=== PATIENT | female | born 1980 | race Two or more races ===

== ENCOUNTER → 2016-10-22 | Outpatient (CLI) | payer OTHER ==
[~2016-10-22] MED LIST: AUGMENTIN PO; ESTRADIOL1 EAC2 EXT; HUMIRA PEN40 MG/0.8 SUBQ; HYDROCODON-ACE1 EAC7 PO; NO MEDICATIONS
[2016-10-22 10:09] LABS: HEMATOCRIT 48.6 % (35.0-45.0); HEMOGLOBIN 16.3 gm/dL (12.0-16.0); MEAN CELL VOLUME 92.3 FL (83-96); MEAN CORPUSCULAR HGB CONC 33.6 g/dL (30-36); MEAN PLATELET VOLUME 9.2 FL (6.5-11.5); RED BLOOD COUNT 5.27 X10e (3.90-5.30); RED CELL DISTRIBUTION WIDTH 15.1 % (11.0-15.5); WHITE BLOOD COUNT 10.7 X10e3 (4.0-10.5)
== END | disposition home or self-care (01) ==
LOC: CAMB 08:42
PROVIDERS: Specialist
DX: Z01.812 Encounter for preprocedural laboratory examination (principal)
CPT/HCPCS: 85027

== ENCOUNTER → 2016-10-29 | Day surgery (SDC) | payer OTHER ==
--- NOTE | ~2016-10-29 | OR ---
Unit #: [id number] #: [id number] Patient: CHIP ECHEVERRIA [id number] [address] [place], [place] [address] [id number] O MR#: [id number] NAME: CHIP ECHEVERRIA ROOM: Date of Procedure: 10/29/2016 Admission Date: 10/29/2016 Surgeon: Alexis Barnard M.D. : 1980 Attending Physician: Alexis Barnard M.D. Primary Care Physician: Misti Arnold M.D. PROCEDURE OPERATIVE NOTE PREOPERATIVE DIAGNOSIS Chronic axillary hidradenitis. POSTOPERATIVE DIAGNOSIS Chronic axillary hidradenitis. PROCEDURE PERFORMED Excision of chronic stage 4 axillary hidradenitis measuring 12 x 4 cm with excision down into the superficial axillary fascia. ANESTHESIA General endotracheal anesthesia. ESTIMATED BLOOD LOSS 25 mL. INDICATION Ms. Echeverria is a 35-year-old female who has had chronic bilateral axillary hidradenitis requiring multiple episodes of antibiotics, incision and drainage and even episodes of spontaneous drainage. She has developed chronic palpable nodules in the right axillary with several chronic sinuses. Due to failure to improve with nonoperative management, the patient was sent for resection. DESCRIPTION OF PROCEDURE The patient was seen in preoperative hold. I palpated through the axilla and marked the extent of the disease with the aid of the patient. Close to where the incision was going to be, there was a superficial mole that the patient asked to be removed. After this area had been marked, she was transported to the operating room where, after induction of general endotracheal anesthesia, she received IV antibiotics and she was appropriately positioned. A wedge excision to include all of the superficially effected tissue was performed. We then created circumferential skin flaps and dissected down through good clean tissue planes down to the clavipectoral fascia. I then removed all of the effected tissue exterior to the clavipectoral fascia. No other palpable masses or nodes were noted. The specimen was sent to the laboratory. On the skin, the superficial mole was excised at the level of the skin and sent to the lab. I then irrigated copiously, ensured hemostasis. I palpated widely and no other palpable nodules were felt. The soft tissue was closed in layers using 2-0 Vicryl interrupted suture and 30 mL of 0.5% Marcaine with epinephrine was infiltrated in the fascia and soft tissue. Unit #: [id number] #: [id number] Patient: CHIP ECHEVERRIA Skin was closed with 2-0 nylon vertical mattress alternating with simple sutures. Once the wound was closed, Telfa and Tegaderm placed as dressing. Sponge and needle counts correct x3. The patient tolerated the procedure well and was transported to recovery in stable condition. Findings and postoperative instructions will be discussed with the family once they return from lunch. Dictated by... Carlos Sanchez/raven TD: 10/29/2016 14:00 JOB #: [id number] PROCEDURE OPERATIVE NOTE Page 1 of 1 X Alexis Barnard MD X PROCEDURE OPERATIVE NOTE
[2016-10-29 11:36] LABS: ALBUMIN SERUM 3.4 g/dL (3.5-5.0); BILIRUBIN,TOTAL 0.5 mg/dL (0.2-2.0); BUN/CREATININE RATIO 21.66; CREATININE SERUM 0.6 mg/dL (0.6-1.4); GLOM FILT RATE Estimated 136.9 mL/min (>60); POTASSIUM 3.7 mmol/L (3.5-5.1); PROTEIN TOTAL SERUM 7.4 g/dL (6.0-8.3)
== END | disposition home or self-care (01) ==
LOC: CSUR 10:16
PROVIDERS: Specialist
DX: L73.2 Hidradenitis suppurativa (principal); R03.0 Elevated blood-pressure reading, without diagnosis of hypertension; E66.9 Obesity, unspecified; D64.9 Anemia, unspecified; M19.90 Unspecified osteoarthritis, unspecified site; G43.909 Migraine, unspecified, not intractable, without status migrainosus; F41.9 Anxiety disorder, unspecified; F17.210 Nicotine dependence, cigarettes, uncomplicated; Z68.37 Body mass index [BMI] 37.0-37.9, adult; Z88.1 Allergy status to other antibiotic agents; Z88.5 Allergy status to narcotic agent; Z88.6 Allergy status to analgesic agent; Z88.8 Allergy status to other drugs, medicaments and biological substances; Z91.040 Latex allergy status; Z79.899 Other long term (current) drug therapy; Z90.49 Acquired absence of other specified parts of digestive tract; Z90.710 Acquired absence of both cervix and uterus; Z98.51 Tubal ligation status; Z98.890 Other specified postprocedural states
CPT/HCPCS: 80053; 88304; J1170; J2250; J2405; J3010; J3370

== ENCOUNTER 2016-11-14 02:00 | Observation (INO) | payer OTHER ==
--- NOTE | ~2016-11-14 | CO ---
Unit #: [id number] #: [id number] Patient: CHIP ECHEVERRIA [id number] [address] [address] [id number] I MR#: [id number] NAME: CHIP ECHEVERRIA ROOM: 229 Age: 36 Sex: F Admission Date: 11/14/2016 : 1980 Attending Physician: Chilo Garvin M.D. Primary Care Physician: Misti Arnold M.D. Consultation Date: 11/14/2016 CONSULTATION REPORT HISTORY OF PRESENT ILLNESS Ms. Echeverria is a 36-year-old female with a long history of multiple sites of hidradenitis. She recently has had a resection of the right axilla for chronic recurrent infections and chronic draining sinus tracts. She tolerated her surgery well, but presented to her local ER, was concerned about some drainage. She was sent for admission to [facility]. The patient has been admitted and I saw her on the floor and although she had some seropurulent drainage, it was the expected and typical drainage. The incision line was intact. I could not express any gross pus and there was no cellulitis. The patient had been started on vancomycin. Her laboratories were unremarkable and I discussed local care with the patient. We will allow her to be discharged home after she completes her next course of vancomycin for ongoing outpatient care. PAST MEDICAL HISTORY Anemia, anxiety, arthritis, bipolar, conjunctivitis, tobacco abuse, hidradenitis, hypertension, migraine headaches, palpitations, panic attack, tinea pedis, endometriosis, depression, and asthma. PAST SURGICAL HISTORY , cholecystectomy, hysterectomy, tubal ligation. ALLERGIES She is allergic to Biaxin, Diflucan, lithium, morphine, Percocet, and latex. CURRENT MEDICATIONS Include Tylenol 3, amlodipine, benzonatate oral capsule, Celexa, estradiol, Humira, hydrocodone, hydroxyzine. FAMILY HISTORY Arthritis, bipolar disorder, peripheral vascular disease, stroke, depression, hypercholesterolemia, hypertension, osteoporosis, seizure disorder, COPD, atherosclerotic coronary disease. SOCIAL HISTORY Denies use of alcohol. She is a smoker. REVIEW OF SYSTEMS Otherwise noncontributory. PHYSICAL EXAMINATION VITAL SIGNS: 5 feet 6 inches and 235 pounds; blood pressure 120/78, pulse is 82 and regular, respirations 20 and nonlabored. Unit #: [id number] #: [id number] Patient: CHIP ECHEVERRIA GENERAL: Awake, alert, and oriented. HEENT: Unremarkable. CARDIAC: Regular rate and rhythm. LUNGS: Clear. ABDOMEN: Soft. EXTREMITIES: No edema. NEUROLOGIC: Grossly intact. EXTREMITIES: Examination of the right axilla shows her suture line is intact. There is no spontaneous drainage. I could only express a small amount of serosanguineous drainage. There is no cellulitis. There is a bit of an odor, but that is not unexpected. DIAGNOSTIC STUDIES LABORATORY RESULTS: Unremarkable. ASSESSMENT AND PLAN The patient with some typical drainage after an extensive excision of her axillary hidradenitis. The patient has already been admitted and started on antibiotics. We will continue her next dose of antibiotics and discharge her home and continue oral antibiotics as a precaution and have the patient follow up in the office for ongoing care. No surgical drainage is necessary and there was no ongoing cellulitis. Dictated by... Carlos Sanchez/narcisa TD: 11/16/2016 01:26 JOB #: [id number] CONSULTATION REPORT Page 1 of 1 X Alexis Barnard MD CONSULTATION REPORT
--- NOTE | ~2016-11-14 | DS ---
Unit #: [id number] #: [id number] Patient: CHPI ECHEVERRIA [id number] [address] [address] [id number] I MR#: [id number] NAME: CHIP ECHEVERRIA ROOM: 229 Age: 36 Sex: F Admission Date: 11/14/2016 : 1980 Discharge Date: 11/15/2016 Attending Physician: Chilo Garvin M.D. Primary Care Physician: Misti Arnold M.D. DISCHARGE SUMMARY HISTORY AND HOSPITAL COURSE Ms. Echeverria is a 36-year-old female with a long history of chronic hidradenitis who has had a recent right axillary resection. She presented to an [facility] ER with complaints of some wound drainage and she was transferred here to [place] for abscess and cellulitis. On my examination, there was neither. She had the typical seropurulent drainage we see with this. Her wound was intact, and there was no cellulitis. She did receive several doses of IV antibiotics. She is stable. Her wound looks good and there is minimal to no drainage on the dressing today. She was instructed on wound care. She will be discharged home with some pain medication and an office follow-up for next week. She is to continue her local care as previously discussed. Because she does have some tender nodules in the left axillary and underneath the right breast, we will continue her on some oral antibiotics. The patient understood these instructions, discharged home in stable condition. Dictated by... Carlos Sanchez/bhanu TD: 11/16/2016 15:15 JOB #: [id number] DISCHARGE SUMMARY Page 1 of 1 X Alexis Barnard MD X DISCHARGE SUMMARY
[~2016-11-14 02:00] MED LIST changes: -AUGMENTIN PO; -ESTRADIOL1 EAC2 EXT; -HYDROCODON-ACE1 EAC7 PO
[2016-11-14] MEDS ORDERED: ESTRADIOL1 EAC2 EXT (04:26)
[2016-11-14 13:04] LABS: CALCIUM SERUM 8.9 mg/dL (8.4-10.2); CREATININE SERUM 0.5 mg/dL (0.6-1.4); GLOM FILT RATE Estimated 144.3 mL/min (>60); POTASSIUM 3.9 mmol/L (3.5-5.1)
[2016-11-15] MEDS ORDERED: HYDROCODON-ACE1 EAC7 PO (07:28)
[2016-11-15] MEDS ORDERED: AUGMENTIN PO (07:29)
[2017-01-02] MEDS ORDERED: NO MEDICATIONS (10:58)
== END 2016-11-15 18:07 | disposition home or self-care (01) | DRG 863 ==
LOC: C2A 02:00 → CEDOF 02:00 → C2A 07:00
PROVIDERS: Surgery
DX: T81.4XXA Infection following a procedure, initial encounter (principal); L03.111 Cellulitis of right axilla; Y83.8 Other surgical procedures as the cause of abnormal reaction of the patient, or of later complication, without mention of misadventure at the time of the procedure; F17.200 Nicotine dependence, unspecified, uncomplicated; I10 Essential (primary) hypertension; F41.0 Panic disorder [episodic paroxysmal anxiety]; F32.9 Major depressive disorder, single episode, unspecified; J45.909 Unspecified asthma, uncomplicated; Z91.040 Latex allergy status; Z88.5 Allergy status to narcotic agent; Z90.49 Acquired absence of other specified parts of digestive tract; Z88.8 Allergy status to other drugs, medicaments and biological substances; Z90.710 Acquired absence of both cervix and uterus; Z82.49 Family history of ischemic heart disease and other diseases of the circulatory system; Z82.5 Family history of asthma and other chronic lower respiratory diseases; Z82.61 Family history of arthritis; Z82.0 Family history of epilepsy and other diseases of the nervous system
CPT/HCPCS: 80048; 96365; 96366; 96375; 96376; G0378; J2405; J3370

== ENCOUNTER → 2017-01-02 | Outpatient (CLI) | payer OTHER ==
[~2017-01-02] MED LIST changes: +AUGMENTIN PO; +ESTRADIOL1 EAC2 EXT; +HYDROCODON-ACE1 EAC7 PO
[2017-01-02 12:11] LABS: HEMATOCRIT 48.7 % (35.0-45.0); HEMOGLOBIN 16.2 gm/dL (12.0-16.0); MEAN CELL VOLUME 93.4 FL (83-96); MEAN CORPUSCULAR HGB CONC 33.2 g/dL (30-36); MEAN PLATELET VOLUME 9.1 FL (6.5-11.5); RED BLOOD COUNT 5.22 X10e (3.90-5.30); RED CELL DISTRIBUTION WIDTH 14.6 % (11.0-15.5); WHITE BLOOD COUNT 8.5 X10e3 (4.0-10.5)
[2017-01-02 12:48] LABS: BUN/CREATININE RATIO 21.66; CALCIUM SERUM 9.4 mg/dL (8.4-10.2); CREATININE SERUM 0.6 mg/dL (0.6-1.4); GLOM FILT RATE Estimated 117.3 mL/min (>60); POTASSIUM 4.4 mmol/L (3.5-5.1)
== END | disposition home or self-care (01) ==
LOC: CAMB 12-30 15:00
PROVIDERS: Specialist
DX: Z01.812 Encounter for preprocedural laboratory examination (principal)
CPT/HCPCS: 36415; 80048; 85027

== ENCOUNTER → 2017-01-07 | Day surgery (SDC) | payer OTHER ==
--- NOTE | ~2017-01-07 | OR ---
Unit #: [id number] #: [id number] Patient: CHIP ECHEVERRIA [id number] [address] [address] [id number] O MR#: [id number] NAME: CHIP ECHEVERRIA ROOM: Date of Procedure: 01/07/2017 Admission Date: 01/07/2017 Surgeon: Alexis Barnard M.D. : 1980 Attending Physician: Alexis Barnard M.D. Referring Physician: Alexis Barnard M.D. Primary Care Physician: Misti Arnold M.D. OPERATIVE REPORT PREOPERATIVE DIAGNOSIS Chronic recurrent left axillary hidradenitis suppurativa. POSTOPERATIVE DIAGNOSIS Chronic recurrent left axillary hidradenitis suppurativa. PROCEDURES PERFORMED 1. Left axillary hidradenitis excision measuring 10 x 3 x 2 cm. 2. Placement of a Prevena wound management system. ANESTHESIA General endotracheal anesthesia. ESTIMATED BLOOD LOSS Less than 20 mL. INDICATIONS FOR PROCEDURE A 36-year-old female, who has multifocal chronic recurrent hidradenitis. She has had previous resection of the right axilla and now because of chronic recurrent infection and draining, would like to proceed with the left side. DESCRIPTION OF PROCEDURE The patient was admitted to [facility], positively identified, and transported to the operating room, and after induction of general endotracheal anesthesia, she received vancomycin IV. Her arm was abducted on an operating arm board and a roll was placed under the left chest wall to elevate the axilla. She was then prepped and draped in usual sterile fashion after appropriate padding and securing the arm. After being prepped and draped, a wedge excision around all the affected tissue was performed. We dissected down and removed all the affected subglandular tissue and fatty tissue. We carried this down to the clavipectoral fascia. Once the abnormal tissue was excised, I irrigated with saline and Betadine and obtained hemostasis. The deep space was closed with multiple 2-0 Vicryl interrupted sutures and then the skin was reapproximated with 2-0 nylon vertical mattress sutures. A Prevena wound management system was applied. The patient tolerated the procedure well and was transported to recovery in stable condition. Sponges and needle counts were correct x3. The patient was transported to recovery in stable condition. Postoperative instructions were discussed with her family. Unit #: [id number] #: [id number] Patient: CHIP ECHEVERRIA Dictated by... Carlos Sanchez/narcisa TD: 01/08/2017 02:58 JOB #: [id number] OPERATIVE REPORT Page 1 of 1 X Alexis Barnard MD PROCEDURE OPERATIVE NOTE
== END | disposition home or self-care (01) ==
LOC: CSUR 05:56
DX: L73.2 Hidradenitis suppurativa (principal); L72.0 Epidermal cyst; I10 Essential (primary) hypertension; F17.210 Nicotine dependence, cigarettes, uncomplicated; Z88.1 Allergy status to other antibiotic agents; Z88.6 Allergy status to analgesic agent; Z88.8 Allergy status to other drugs, medicaments and biological substances; Z91.040 Latex allergy status; Z98.51 Tubal ligation status; Z90.49 Acquired absence of other specified parts of digestive tract; Z90.710 Acquired absence of both cervix and uterus; Z98.890 Other specified postprocedural states
CPT/HCPCS: 88304; J2250; J2405; J3010; J3370